=== PATIENT | male | born 1995 | race Caucasian/White ===

== ENCOUNTER 2016-04-19 10:56 | Emergency (ER) | payer MEDICAID ==
[~2016-04-19] VITALS: Wt 81.6 kg
[~2016-04-19 10:56] MED LIST: ALBU8.5H3 INH; IBUP-1542 PO; OMEP20CA16 PO; ONDA4TAB14 PO
[2016-04-19] MEDS ORDERED: NPH10OT RIGHT EAR (11:25)
[2016-04-19] MEDS ORDERED: HYDR-906 PO (11:25)
[2016-04-19] MEDS ORDERED: NAPR-688 PO (11:25)
--- NOTE | 2016-04-19 11:37 | ERD ---
ER Documentation Chief Complaint Date/Time DATE: 04/19/16 TIME: 11:35 Chief Complaint RIGHT EAR PAIN X3 DAYS HPI This 20-year-old male presents for right ear pain for the last 3 days. He has no decreased hearing. No fevers chills or discharge. Has not been swimming lately. No throat pain ROS All systems reviewed and are negative except as per history of present illness. Medications Home Meds Active Scripts Naproxen* (Naproxen*) 500 Mg Tablet, 500 MG PO BID Y for PAIN, #20 TAB Prov:JESUSALEAH 04/19/16 Hydrocodone/Acetaminophen ([place]insworth 5-325 Tablet) 1 Each Tablet, 1 EACH PO Q6, #7 TAB Prov:JESUSALEAH 04/19/16 Neomycin/Polymyxin/Hydrocort* (Cortisporin* Otic) 10 Ml Susp, 4 DROP RIGHT EAR QID for 7 Days, EA Prov:JESUSALEAHANAYELI MCKEON 04/19/16 Omeprazole* (Omeprazole*) 20 Mg Capsule.dr, 20 MG PO BID, #20 Prov:CRISTIANA WHYTE DO 11/22/15 Ondansetron (Ondansetron Odt) 4 Mg Tab.rapdis, 4 MG PO Q6H Y for NAUSEA AND/OR VOMITING, #6 TAB Prov:CRISTIANA WHYTE DO 11/22/15 Albuterol Sulfate* (Proair HFA*) 8.5 Gm Hfa.aer.ad, 2 PUFF INH Q4, #1 INHALER Prov:FREDY FERRELL PA-C 11/09/15 Ibuprofen* (Motrin*) 600 Mg Tab, 600 MG PO Q6, #30 TAB Prov:FREDY FERRELL PA-C 11/09/15 Allergies Allergies: Coded Allergies: Penicillins (Verified Allergy, Unknown, 11/09/15) PMhx/Soc Medical and Surgical Hx: pt denies Medical Hx, pt denies Surgical Hx History of Surgery: No Anesthesia Reaction: No Hx Neurological Disorder: No Hx Respiratory Disorders: No Hx Cardiac Disorders: No Hx Psychiatric Problems: No Hx Miscellaneous Medical Probl: No Hx Alcohol Use: No Hx Substance Use: No Hx Tobacco Use: No Smoking Status: Never smoker Physical Exam Vitals Vital Signs Date Time Temp Pulse Resp B/P Pulse Ox O2 Delivery O2 Flow Rate FiO2 04/19/16 11:03 97.6 68 18 136/65 98 Physical Exam Const: [] No distress Head: Atraumatic Eyes: Normal Conjunctiva ENT: Normal External Ears, Nose and Mouth., Right dependently within normal limits no abnormalities, oropharynx clear within normal limits with no abnormalities, right ear canal with significant swelling white plaquing, appearance otitis externa, tympanic membrane within normal limits Neck: Full range of motion..~ No meningismus. Procedures/MDM Right-sided otitis externa. Normal tympanic membrane. Discharging with Cortisporin eardrops as well as naproxen and 7 Ainsworth for any severe pain and so the patient can rest comfortably. Primary care follow-up in the next 2-3 days and return precautions to the ER. Departure Diagnosis: Primary Impression: Otitis externa of right ear Condition: Stable Patient Instructions: External Ear Infection (Adult) Referrals: [facility] YOU HAVE RECEIVED A MEDICAL SCREENING EXAM AND THE RESULTS INDICATE THAT YOU DO NOT HAVE A CONDITION THAT REQUIRES URGENT TREATMENT IN THE EMERGENCY DEPARTMENT. FURTHER EVALUATION AND TREATMENT OF YOUR CONDITION CAN WAIT UNTIL YOU ARE SEEN IN YOUR DOCTORS OFFICE WITHIN THE NEXT 1-2 DAYS. IT IS YOUR RESPONSIBILITY TO MAKE AN APPOINTMENT FOR FOLOW-UP CARE. IF YOU HAVE A PRIMARY DOCTOR --you should call your primary doctor and schedule an appointment IF YOU DO NOT HAVE A PRIMARY DOCTOR YOU CAN CALL OUR PHYSICIAN REFERRAL HOTLINE AT IF YOU CAN NOT AFFORD TO SEE A PHYSICIAN YOU CAN CHOSE FROM THE FOLLOWING [facility] [address] [facility]. [facility] [address] [facility] [facility] [address] [facility] [address] [facility]. [facility] [address] [facility]. [facility]. [address] Additional Instructions: Call your primary care doctor TOMORROW for an appointment during the next 1-2 days.See the doctor sooner or return here if your condition worsens before your appointment time. ALEAH LEE DO Apr 19, 2016 11:37
== END 2016-04-19 11:35 | disposition home or self-care (01) ==
LOC: FTE 10:56
DX: H60.91 Unspecified otitis externa, right ear (principal)
CPT/HCPCS: 99283

== ENCOUNTER 2016-12-16 16:57 | Emergency (ER) | payer SELFPAY ==
[~2016-12-16 16:57] MED LIST changes: +HYDR-906 PO; +NAPR-688 PO; +NPH10OT RIGHT EAR
[2016-12-16] MEDS ORDERED: FAMO-96 PO (23:50)
== END 2016-12-16 17:50 | disposition left against medical advice (07) ==
LOC: E/R 17:50
DX: Z53.21 Procedure and treatment not carried out due to patient leaving prior to being seen by health care provider (principal)

== ENCOUNTER 2016-12-16 19:44 | Emergency (ER) | payer SELFPAY ==
[~2016-12-16] VITALS: Ht 160 cm; Wt 80.0 kg
[2016-12-16 20:05] VITALS: Ht 160 cm; Wt 80.0 kg
--- NOTE | 2016-12-16 22:46 | ERA ---
ER Documentation Chief Complaint Date/Time DATE: 12/16/16 TIME: 22:41 Chief Complaint EPIGASTRIC PAIN X 1 DAY, DENIES N/V HPI 21-year-old male presenting with a chief complaints of epigastric pain 1 day. Mild dry nonproductive cough 1-2 weeks. Denies fever, chills, lower abdominal pain, nausea, vomiting. Does have diarrhea 2-3 days without specific characteristics. Denies fever. Has not taken any medications to relieve the symptoms. Symptoms improved with food. Denies alcohol use or drug abuse. Unremarkable family history. Patient has no other complaints and describes no other associated manifestations. Nursing notes have been reviewed and are consistent with history given. ROS All systems reviewed and are negative except as per history of present illness. Medications Home Meds Active Scripts Famotidine* (Pepcid*) 20 Mg Tablet, 20 MG PO BID for 4 Days, TAB Prov:FAVIOLA WATERS PA-C 12/16/16 Naproxen* (Naproxen*) 500 Mg Tablet, 500 MG PO BID Y for PAIN, #20 TAB Prov:ALEAH LEE DO 04/19/16 Hydrocodone/Acetaminophen ([place] 5-325 Tablet) 1 Each Tablet, 1 EACH PO Q6, #7 TAB Prov:ALEAH LEE DO 04/19/16 Neomycin/Polymyxin/Hydrocort* (Cortisporin* Otic) 10 Ml Susp, 4 DROP RIGHT EAR QID for 7 Days, EA Prov:ALEAH LEE DO 04/19/16 Omeprazole* (Omeprazole*) 20 Mg Capsule.dr, 20 MG PO BID, #20 Prov:CRISTIANA WHYTE DO 11/22/15 Ondansetron (Ondansetron Odt) 4 Mg Tab.rapdis, 4 MG PO Q6H Y for NAUSEA AND/OR VOMITING, #6 TAB Prov:CRISTIANA WHYTE DO 11/22/15 Albuterol Sulfate* (Proair HFA*) 8.5 Gm Hfa.aer.ad, 2 PUFF INH Q4, #1 INHALER Prov:FREDY FERRELL PA-C 11/09/15 Ibuprofen* (Motrin*) 600 Mg Tab, 600 MG PO Q6, #30 TAB Prov:FREDY FERRELL PA-C 11/09/15 Allergies Allergies: Coded Allergies: Penicillins (Verified Allergy, Unknown, 11/09/15) PMhx/Soc Medical and Surgical Hx: pt denies Medical Hx, pt denies Surgical Hx History of Surgery: No Anesthesia Reaction: No Hx Neurological Disorder: No Hx Respiratory Disorders: No Hx Cardiac Disorders: No Hx Psychiatric Problems: No Hx Miscellaneous Medical Probl: No Hx Alcohol Use: No Hx Substance Use: No Hx Tobacco Use: No Smoking Status: Never smoker Physical Exam Vitals Vital Signs Date Time Temp Pulse Resp B/P Pulse Ox O2 Delivery O2 Flow Rate FiO2 12/16/16 20:05 98.8 88 20 137/64 98 Physical Exam Const: Well-appearing 21-year-old male sitting on the gurney in no acute distress. Head: Atraumatic Eyes: Normal Conjunctiva ENT: Normal External Ears, Nose and Mouth. Neck: Full range of motion..~ No meningismus. Resp: Clear to auscultation bilaterally Cardio: Regular rate and rhythm, no murmurs Abd: Mild epigastric tenderness. Soft, non distended. Normal bowel sounds Skin: No petechiae or rashes Back: No midline or flank tenderness Ext: No cyanosis, or edema Neur: Awake and alert Psych: Normal Mood and Affect Procedures/MDM Patient presents with a chief complaint of abdominal pain. Describes cough and diarrhea. Refused pain medications in the ED. Abdominal pain is in the epigastric region with mild tenderness. Improves with food. I have little suspicion for pancreatitis, appendicitis, cholangitis, cholecystitis, or other acute abdomen. X-ray was obtained due to history of cough and pain in the epigastric region, read by the radiologist and given the following impression: Unremarkable. EKG was read by me is unremarkable with normal sinus rhythm, no ST-T wave elevations or depressions, no T-wave inversions, normal axis, good baseline. I have no suspicion for pneumonia, ACS, PE, or other acute cardiopulmonary pathologies. No suspicion for endangerment of the airway. I have spoke with the patient regarding their condition and future management. They have verbally responded that they understand their status and treatment plan. The patients vitals are stable, and their current condition is appropriate for discharge. The patient will be given discharge instructions with return precautions. Departure Condition: Stable Additional Instructions: Follow up with your PCP within the next 1-3 days for a more thorough evaluation and a possible referral to a specialist. Return the the emergency department immediately if symptoms worsen or change. If you have any questions regarding medications, ask your pharmacist or us before you leave. If any adverse reactions occur while taking your medications, discontinue the treatment and return to the emergency department immediately. Take your medications as directed, and complete the entire course of treatment. FAVIOLA WATERS PA-C Dec 16, 2016 22:46
--- NOTE | 2016-12-16 23:36 | RADRPT ---
PROCEDURE: XR Chest. CLINICAL INDICATION: Cough. TECHNIQUE: Single frontal view of the chest. COMPARISON: 11/09/2015. FINDINGS: The cardiomediastinal silhouette is within normal limits. The lungs are clear. No signs of pleural f luid or pneumothorax are seen. The osseous structures and soft tissues are unremarkable. IMPRESSION: No evidence for active cardiopulmonary disease. RPTAT: [facility] Physician Britta Date Time Electronically viewed and signed by Virginia Smart Physician on 12/16/2016 23:36 RS/
[2016-12-16] MEDS ORDERED: FAMO-96 PO (23:50)
== END 2016-12-16 23:50 | disposition home or self-care (01) ==
LOC: FTE 19:44
DX: R10.13 Epigastric pain (principal); R05 Cough
CPT/HCPCS: 71010